=== PATIENT | male | born 1940 | race Caucasian/White ===

== ENCOUNTER 2016-08-17 09:21 | Emergency (ER) | payer OTHER ==
[~2016-08-17] VITALS: Ht 177.8 cm; Wt 94.8 kg
[2016-08-17 09:25] VITALS: BP 149/80
[2016-08-17] MEDS ORDERED: PRED-220 PO (10:22)
[2016-08-17] MEDS ORDERED: ACET1TAB33 PO (10:22)
--- NOTE | 2016-08-17 10:22 | PHYS DOC ---
Past Medical History Past Medical History: Hypertension, PR, Other Additional Past Medical Histor: SCIATICA,ABDOMINAL ANEURSYM,HOLY CROSS Past Surgical History: Hip Replacement, Knee Replacement, Other Additional Past Surgical Histo: ANGIOGRAM Alcohol Use: Heavy Additional Information: 1 OR 2 BEERS A DAY Drug Use: None Adult General Chief Complaint Chief Complaint: HIP PAIN [facility] HPI Patient is a 76 year old male who presents emergency Department today with complaint of ongoing pain and right buttock with radiation into the lateral aspect of his right calf for approximately 3-4 weeks. Patient states that this initially occurred when he felt a "twinge" in the right lower back when he was throwing some trash. He denies slips or falls. He denies any previous history of spinal column fractures or spinal cord injuries. He denies any history of neuromuscular diseases. Patient denies saddle anesthesia or incontinence of urine and bowel Patient seen both his primary care doctor and an urgent care doctor who had differing opinions. Patient states his primary care doctor seems that they can that he injured his right SI joint, while in urgent care provider believes it is sciatica. Patient states that he had x-rays performed this visit to urgent care which evidently did not show any acute bony injury. He has been on Ultracet, steroids and a muscle relaxer. He states that this has seemed to help out somewhat but not providing continuous relief. Patient has not yet followed up with his primary care doctor. Review of Systems Review of Systems Constitutional: Denies fever or chills [] Eyes: Denies change in visual acuity, redness, or eye pain [] HENT: Denies nasal congestion or sore throat [] Respiratory: Denies cough or shortness of breath [] Cardiovascular: No additional information not addressed in HPI [] GI: Denies abdominal pain, nausea, vomiting, bloody stools or diarrhea [] : Denies dysuria or hematuria [] Musculoskeletal: Denies back pain or joint pain [] Integument: Denies rash or skin lesions [] Neurologic: Denies headache, focal weakness or sensory changes [] Endocrine: Denies polyuria or polydipsia [] Allergies Allergies Allergies Coded Allergies Type Severity Reaction Last Updated Verified Penicillins Allergy Severe SHAKES, SEIZURE LIKE 08/17/16 Yes acetaminophen Allergy Mild "SEND ME UP THE RIVER" 08/17/16 Yes hydrocodone Allergy Mild "SEND ME UP THE RIVER" 08/17/16 Yes Physical Exam Physical Exam Constitutional: Well developed, well nourished, no acute distress, non-toxic appearance. [] HENT: Normocephalic, atraumatic, bilateral external ears normal, oropharynx moist, no oral exudates, nose normal. [] Eyes: PERRLA, EOMI, conjunctiva normal, no discharge. [] Neck: Normal range of motion, no tenderness, supple, no stridor. [] Cardiovascular:Heart rate regular rhythm, no murmur [] Lungs & Thorax: Bilateral breath sounds clear to auscultation [] Abdomen: Bowel sounds normal, soft, no tenderness, no masses, no pulsatile masses. [] Skin: Warm, dry, no erythema, no rash. [] Back: Patient's back is normal in appearance without any overlying skin lesions. There is tenderness to palpation in the region of S1 to the right lateral aspect that extends into the right buttock. There is no palpable defect , deformity or spasm. Patient doesn't complain of any pain specifically to the right or left SI joint. Extremities: No tenderness, no cyanosis, no clubbing, ROM intact, no edema. [] Neurologic: Alert and oriented X 3, normal motor function, normal sensory function, no focal deficits noted. Lower extremities are symmetric in appearance. There has been what appears to be a saphenous vein graft from his right leg in the past. Strength is equal and symmetric. Patient complains of pain at approximately 40-45 of straight leg raise. Patient does not complain of pain with crossover straight leg raise. Psychologic: Affect normal, judgement normal, mood normal. [] Current Patient Data Vital Signs Vital Signs Date Time Temp Pulse Resp B/P Pulse Ox O2 Delivery O2 Flow Rate FiO2 08/17/16 09:25 98.1 87 20 149/80 96 Room Air 98.1 EKG EKG [] Radiology/Procedures Radiology/Procedures [] Course & Med Decision Making Course & Med Decision Making I explained to the patient that we would not order an MRI of his lumbar spine here today as he does not have any evidence of cauda equina syndrome. Patient verbalizes understanding of this. I advised patient that he needs to follow up with his primary care doctor to discuss imaging and additional management of his sciatica. Patient verbalizes understanding of this as well. Brayden Disclaimer Dragon Disclaimer This electronic medical record was generated, in whole or in part, using a voice recognition dictation system. Departure Departure Impression: Primary Impression: Sciatica Disposition: 01 HOME, SELF-CARE Condition: GOOD Referrals: ZARA ULRICH Jr, MD (PCP) Patient Instructions: Sciatica, [id number] Additional Instructions: 1. Your symptoms are consistent with sciatica. Please review the discharge instructions provided for information about self-care and reasons to return to the emergency department. 2. Take the medication as prescribed. 3. Contact your primary care doctor today to schedule follow-up. Outpatient imaging, such as an MRI may be of benefit to help identify the source of your sciatica. Scripts Prednisone 10 Mg Ajmisy05 Mg PO UD PREDNISONE TAPER #39 TAB Ref 0 Take 3 tablets by mouth twice a day for 3 days, then take 2 tablets by mouth twice a day for 3 days, then take 1 tablet by mouth twice a day for 3 days, then take 1 tablet by mouth daily x 3 days, then stop. Prov:EZEKIEL PARSON 08/17/16 Acetaminophen With Codeine (Acetaminophen-Cod #3 Tablet)1 Each Tablet1 Tab PO PRN Q4HRS PRN PAIN #20 TAB Prov:EZEKIEL PARSON 08/17/16 EZEKIEL PARSON Aug 17, 2016 10:22
== END 2016-08-17 10:50 | disposition home or self-care (01) ==
LOC: ER 09:21
DX: M54.41 Lumbago with sciatica, right side (principal); I25.2 Old myocardial infarction; I10 Essential (primary) hypertension; F10.10 Alcohol abuse, uncomplicated; Z88.6 Allergy status to analgesic agent; Z88.5 Allergy status to narcotic agent; Z88.0 Allergy status to penicillin
CPT/HCPCS: 99284

== ENCOUNTER → 2016-08-31 | Outpatient (CLI) | payer OTHER ==
[2016-08-17 09:25] VITALS: BP 149/80
[~2016-08-31] MED LIST: ACET1TAB33 PO; PRED-220 PO
--- NOTE | 2016-08-31 10:42 | KCIC ---
PROCEDURE Abdominal aorta ultrasound. HISTORY Abdominal aortic aneurysm seen on x-ray. TECHNIQUE Real-time grayscale, color flow, Doppler spectral waveform analysis of the abdominal aorta is performed. COMPARISON None. FINDINGS The proximal abdominal aorta is obscured due to overlying bowel gas. Atherosclerotic mid and distal abdominal aorta and iliac arteries. There is aneurysm of the mid to distal abdominal aorta, diameter 4.5 x 4.1 cm. Color Doppler interrogation suggests that there is moderate mural thrombus. Length of the aneurysm is approximately 6.5 cm. Distal abdominal aorta diameter is 1.5 cm. Right iliac artery measures 1.1 cm, left 1 cm. IMPRESSION Fusiform mid to distal infrarenal abdominal aortic aneurysm. Electronically signed by: Uvaldo Persaud MD (Aug 31, 2016 10:40:30)
== END | disposition home or self-care (01) ==
LOC: KCIC US 07:46
PROVIDERS: ATTEND Internal Medicine
DX: I71.4 Abdominal aortic aneurysm, without rupture (principal)
CPT/HCPCS: 76770

== ENCOUNTER → 2017-03-07 | Outpatient (CLI) | payer OTHER ==
--- NOTE | 2017-03-11 16:36 | KCIC ---
Ultrasound of the abdominal aorta 03/07/2017 CLINICAL HISTORY: History of abdominal aortic aneurysm. TECHNIQUE: A real-time ultrasound examination of the abdominal aorta was performed. Multiple images were obtained. FINDINGS: Moderate atheromatous/atherosclerotic plaque formation is seen involving the abdominal aorta and its branches. The abdominal aorta is aneurysmal in its infrarenal portion measuring 4.9 cm in greatest AP diameter. This has not significantly changed since the previous examination. The origins of both common iliac arteries are obscured by overlying bowel gas. IMPRESSION: 4.9 cm infrarenal abdominal aortic aneurysm, unchanged. Electronically signed by: Yefri Mukherjee MD (03/11/2017 4:33 PM) [id number]
== END | disposition home or self-care (01) ==
LOC: KCIC US 07:40 → MERGE 08:00
PROVIDERS: ATTEND Family Medicine
DX: I71.4 Abdominal aortic aneurysm, without rupture (principal); I70.0 Atherosclerosis of aorta; Z86.79 Personal history of other diseases of the circulatory system
CPT/HCPCS: 76770